=== PATIENT | female | born 1995 | race Two or more races ===

== ENCOUNTER → 2021-10-15 08:12 | Outpatient (CLI) | payer OTHER, SELFPAY ==
[2021-10-15 09:30] LABS: HCG,Quantitative 5026 mIU/ml (0-5.42)
== END ==
PROVIDERS: Visit Provider Obstetrics & Gynecology
DX: Z34.90 Encounter for supervision of normal pregnancy, unspecified, unspecified trimester (principal)
CPT/HCPCS: 36415; 84702

== ENCOUNTER 2021-10-15 13:46 | Emergency (ER) | payer OTHER, SELFPAY ==
[2021-10-15] VITALS (9 sets, daily range): BP systolic 110–130; BP diastolic 68–76; PULSE 65–85; RESP 16–18; TEMP 36.6–36.9; O2SAT 99–100; BMI 27.4; BMI 24.7
[2021-10-15 15:11] LABS: Apearance,Urine Clear (Clear); Blood, Urine Negative (Negative); Color,Urine Yellow (Yellow); Glucose,Urine (UA) Negative (Negative); Ketones,Urine Negative (Negative); Protein,Urine Negative (Negative); Specific Gravity, Urine > 1.030 (1.005-1.030)
[2021-10-15 15:12] LABS: Bilirubin,Urine Negative (Negative); UTC Leukocyte Esterase,Urine Trace (Negative); UTC Nitrate,Urine Negative (Negative); UTC Pregnancy Test, Urine Positive (Negative); Urobilinogen,Urine 0.2 EU/dl (0.2)
--- NOTE | 2021-10-15 15:26 | HMH.EDUTC ---
[facility] [place] Disposition Clinical Impression: Abdominal pain Qualifiers: Abdominal location: left lower quadrant Qualified Code(s): R10.32 - Left lower quadrant pain Qualifiers: Weeks of gestation: less than 8 weeks Qualified Code(s): Z3A.01 - Less than 8 weeks gestation of Disposition: Still a Patient Condition on Discharge: Fair Referrals: Provider,Referral, [Primary Care Provider] - Time of Disposition: 15:51 Medical Decision Making - Medical Records Medical records reviewed: No: I reviewed the patient's medical records. - Perry Inquiry Pt receiving controlled substance: No Vital Signs: 10/15/21 14:55 Temperature 97.9 F Temperature Source Oral Pulse Rate [Left] 65 Respiratory Rate 16 Blood Pressure [Right Arm] 130/74 Blood Pressure Mean [Right Arm] 92 02 Sat by Pulse Oximetry 100 - Lab Data Lab results reviewed: Yes: I reviewed the patient's lab results. Lab Results 10/15/21 15:02: Urine Color Yellow, Urine Appearance Clear, Urine pH 7.0, Ur Specific [place] > 1.030 H, Urine Protein Negative, Urine Glucose (UA) Negative, Urine Ketones Negative, Urine Blood Negative, Urine Nitrate Negative, Urine Bilirubin Negative, Urine Urobilinogen 0.2, Ur Leukocyte Esterase Trace, Tst Clinic Positive Orders (Tests/Meds): ORDERS Category Date Time Status Urine Culture Stat Micro 10/15/21 15:01 Received Medical Decision Narrative: She was sent to the ER due to being and having abdominal pain. [facility] [place] HPI - General Stated complaint: 7 wks , lft abd pain Time Seen by Provider: 10/15/21 15:27 Mode of Arrival: Ambulatory Source of Information: Patient Limitations: No Limitations Description of Symptoms (Recalled from Triage Doc. by RN): pt c/o LLQ pain. pt reports she is 7wks . pt c/o a milky white vaginal d/c, strong cramping pain and the pain worsens with movement. pt is gaurding. pt denies any vaginal bleeding at this time. pt has not been able to get in with an OB at this point. LMP 08/19/21 HEENT Symptoms (Recalled from RN notes): No Resp Symptoms (Recalled from RN notes): No Skin Symptoms (Recalled from RN notes): No MS Symptoms (Recalled from RN notes): No Functional Status (Recalled from RN notes): wnl - History of Present Illness Provider Complaint: She states that for the past 3 days she has had left lower quadrant abdominal pain. She is 7 weeks . She denies any vaginal bleeding. She denies any urinary complaints. - Related Data Allergies Allergy/AdvReac Type Severity Reaction Status Date / Time No Known Allergies Allergy Verified 10/15/21 15:01 - Worker's Comp Is this a Worker's Comp case?: No H History - Hepatitis A Screen Drug use history?: No High risk sexual behaviors?: No History of sexually transmitted infection?: No Currently employed?: No Childcare worker?: No Do you have indoor plumbing?: Yes Do you have electricity?: Yes Attestation statement:: This patient has been screened for Hepatitis A risk factors. I have reviewed the patient's past medical history: Yes ROS Obtained: Yes All systems reviewed & no additional complaints - Constitutional Constitutional: Denies chills, Denies fever(s) - Eyes Eyes: Denies eye discharge - ENT Ears, Nose, Mouth, and Throat: Denies dizziness, Denies otalgia, Denies sore throat - Cardiovascular Cardiovascular: Denies chest pain - Respiratory Respiratory: Denies chest congestion, Denies cough, Denies dyspnea, Denies stridor, Denies wheezing - Gastrointestinal Gastrointestingal: Denies: abdominal pain, diarrhea, nausea, vomiting - Genitourinary Female Genitourinary: Reports as per HPI - Musculoskeletal Musculoskeletal: Denies joint pain, Denies back pain, Denies neck pain - Integumentary/Breasts Skin/Breast: Denies rash Physical Exam - General General appearance: alert, in no apparent distress - Head Head exam: atraumatic, normocephali
--- NOTE | 2021-10-15 16:09 | PC.NURSE ---
Ultrasound has been called in
--- NOTE | 2021-10-15 16:10 | US_ITS ---
PROCEDURE INFORMATION: Exam: US , Transvaginal Exam date and time: 10/15/2021 5:02 PM Age: 26 years old Clinical indication: complicated by abdominal or pelvic pain; Right lower quadrant; First trimester (<14 weeks 0 days); Gestational age or lmp: 8 w 1 d; ; Additional info: Llq abdominal pain, R/O torsion, ectopic, or other TECHNIQUE: Imaging protocol: Real-time transvaginal obstetrical ultrasound of the maternal pelvis with image documentation. Transvaginal imaging was used for better evaluation of the fetus, adnexa, and/or cervix. COMPARISON: No relevant prior studies available. FINDINGS: Gestation: A single intrauterine gestational sac is identified. No pole or yolk sac is visualized. The mean gestational sac diameter is 0.7 cm. Placenta: A small area of hypoechogenicity is seen adjacent to the gestational sac, consistent with subchorionic hemorrhage. This measures 8.6 x 0.9 x 0.5 cm. BIOMETRY: Gestational age (AUA): The estimated gestational age by LMP is 8 weeks 1 day. MATERNAL: Uterus: The uterus measures 8.5 x 4.6 x 5.7 cm. The endometrium is thickened measuring 3.6 cm. Cervix: Small hypoechoic nabothian cysts are identified at the level of the cervix. Right ovary/adnexa: The right ovary measures 3.6 x 2.6 x 2.8 cm. Blood flow is demonstrated within the right ovary. Small hypoechoic nabothian cysts are seen within the right ovary. Within the right ovary, there is a 2.2 x 1.8 x 1.8 cm corpus luteum cyst, with peripheral hyperemia. Left ovary/adnexa: The left ovary measures 2.9 x 1.6 x 2.3 cm. Follicles are seen within the left ovary. Blood flow is demonstrated within the left ovary. IMPRESSION: 1. A single intrauterine gestational sac is identified. No pole or yolk sac is visualized. The findings are suspicious for but not diagnostic of failure, based on the [employer] Consensus Conference on Early First Trimester Diagnosis of Miscarriage and Exclusion of a Viable Intrauterine - March 2012. 2. The endometrium is thickened measuring 3.6 cm. 3. A small area of hypoechogenicity is seen adjacent to the gestational sac, consistent with subchorionic hemorrhage. 4. Within the right ovary, there is a 2.2 x 1.8 x 1.8 cm corpus luteum cyst. 5. Small hypoechoic nabothian cysts are identified at the level of the cervix. 6. Follow-up ultrasonography recommended.
--- NOTE | 2021-10-15 16:14 | HMH.EDGENADL ---
ED Disposition Clinical Impression: Threatened Subchorionic bleed Qualifiers: Fetus number: single or unspecified fetus Trimester: first trimester Qualified Code(s): O41.8X10 - Other specified disorders of amniotic fluid and membranes, first trimester, not applicable or unspecified; O46.8X1 - Other antepartum hemorrhage, first trimester Disposition: Home, Self-Care Condition on Discharge: Fair Instructions: DI for Acute Abdominal Pain Additional Instructions: Please follow-up with obstetrics for repeat labs and repeat ultrasound and please return to the emergency department with any new or worsening symptoms including fever, worsening abdominal pain, vaginal bleeding that will not stop or any other new or concerning symptoms. Referrals: Jam Reyes MD [Staff Physician] - ProviderChau MD [Primary Care Provider] - - Critical Care Critical Care Time: No Attestation: On 10/15/21, the high probability of a clinically significant, sudden or life threatening deterioration of the following system(s) required my full and direct attention, intervention and personal management. The time I documented below is in addition to time spent performing reported procedures but includes the following listed in this critical care notation. Medical Decision Making - Perry Inquiry Pt receiving controlled substance: No Vital Signs: 10/15/21 14:55 10/15/21 16:09 10/15/21 17:30 Temperature 97.9 F 98.4 F Temperature Source Oral Oral Pulse Rate 76 Pulse Rate [Left] 65 74 Respiratory Rate 16 16 16 Blood Pressure 112/76 Blood Pressure [Right Arm] 130/74 117/71 Blood Pressure Mean Blood Pressure Mean [Right Arm] 92 86 Blood Pressure Source [Right Arm] Automatic Cuff Blood Pressure Position [Right Arm] Sitting 02 Sat by Pulse Oximetry 100 100 100 Oxygen Delivery Method 10/15/21 18:00 10/15/21 18:30 10/15/21 19:00 Temperature Temperature Source Pulse Rate 67 85 66 Pulse Rate [Left] Respiratory Rate 16 18 17 Blood Pressure 117/71 110/68 120/72 Blood Pressure [Right Arm] Blood Pressure Mean 91 82 86 Blood Pressure Mean [Right Arm] Blood Pressure Source [Right Arm] Blood Pressure Position [Right Arm] 02 Sat by Pulse Oximetry 99 99 100 Oxygen Delivery Method 10/15/21 19:30 Temperature Temperature Source Pulse Rate 67 Pulse Rate [Left] Respiratory Rate Blood Pressure 116/71 Blood Pressure [Right Arm] Blood Pressure Mean Blood Pressure Mean [Right Arm] Blood Pressure Source [Right Arm] Blood Pressure Position [Right Arm] 02 Sat by Pulse Oximetry 100 Oxygen Delivery Method Room Air - Lab Data Lab Results 10/15/21 15:02: Urine Color Yellow, Urine Appearance Clear, Urine pH 7.0, Ur Specific [place] > 1.030 H, Urine Protein Negative, Urine Glucose (UA) Negative, Urine Ketones Negative, Urine Blood Negative, Urine Nitrate Negative, Urine Bilirubin Negative, Urine Urobilinogen 0.2, Ur Leukocyte Esterase Trace, Tst Clinic Positive 10/15/21 16:38: WBC 11.0 H, RBC 4.59, Hgb 13.8, Hct 43.0, MCV 93.6, MCH 30.1, MCHC 32.1, RDW 13.6, Plt Count 341, MPV 8.0, Neut % (Auto) 69.4, Lymph % (Auto) 23.1, Garza % (Auto) 4.3, Eos % (Auto) 0.6, Baso % (Auto) 2.5 H, Neut # (Auto) 7.6, Lymph # (Auto) 2.6, Garza # (Auto) 0.5, Eos # (Auto) 0.1, Baso # (Auto) 0.3 H 10/15/21 16:38: Sodium 137, Potassium 3.8, Chloride 103, Carbon Dioxide 23, Anion Gap 14.8, BUN 14, Creatinine 0.60, Estimated Creat Clear 144, Estimated GFR 122, Est GFR ( Amer) 147, Glucose 70 L, Calcium 8.7, HCG, Quant 6568 H 10/15/21 17:38: Blood Type O Positive, Antibody Screen Negative Result diagrams: 10/15/21 16:38 10/15/21 16:38 Orders (Tests/Meds): ORDERS Category Date Time Status Urine Culture Stat Micro 10/15/21 15:01 Received Medical Decision Narrative: 26-year-old female presented to the emergency department with history of several days of left lower quadrant abdominal pain
--- NOTE | 2021-10-15 17:26 | PC.NURSE ---
Pt returned from U/S
[2021-10-15 17:27] LABS: Basophils # 0.3 K/mm3 (0-0.2); Basophils % 2.5 % (0.1-2.0); Eosinophils # 0.1 K/mm3 (0.0-0.4); Eosinophils % 0.6 % (0.1-12.0); Hemoglobin 13.8 g/dL (12.2-16.2); Lymphocytes # 2.6 K/mm3 (0.7-4.5); Lymphocytes % 23.1 % (10-50); Mean Corpuscular HGB Conc 32.1 g/dL (31.8-35.4); Mean Corpuscular Hemoglobin 30.1 pg (27.0-31.2); Mean Corpuscular Volume 93.6 fl (81-99); Monocytes # 0.5 K/mm3 (0.1-1.0); Monocytes % 4.3 % (1.7-9.3); Neutrophils # 7.6 K/mm3 (1.8-7.8); Neutrophils % 69.4 % (37.0-80.0); Platelet Count 341 K/mm3 (142-424); Red Blood Count 4.59 M/mm3 (4.20-5.40); Red Cell Distribution Width 13.6 % (11.5-17.5)
[2021-10-15 17:30] LABS: Chloride 103 mmol/L (98-107); Potassium 3.8 mmoL/L (3.5-5.1); Sodium 137 mmol/L (136-145)
[2021-10-15 17:33] LABS: Anion Gap 14.8 mEq/L (5-15); Blood Urea Nitrogen 14 mg/dl (7-17); Calcium 8.7 mg/dl (8.4-10.2); Carbon Dioxide 23 mmol/L (22.0-30.0); Creatinine Clearance Estimated 144 mL/min (50-200); Estimated Glomerular Filt Rate 122 ml/min (>60); GFR (African American) 147 ML/MIN (>60); Glucose 70 mg/dl (74-100)
[2021-10-15 17:50] LABS: HCG,Quantitative 6568 mIU/ml (0-5.42)
== END 2021-10-15 20:39 | disposition home or self-care (01) ==
LOC: UTC 13:49 → ER 15:42
PROVIDERS: Nurse Practitioner Family; Emergency Provider Student in an Organized Health Care Education/Training Program
DX: O41.8X10 Other specified disorders of amniotic fluid and membranes, first trimester, not applicable or unspecified (principal); O46.8X1 Other antepartum hemorrhage, first trimester; Z3A.01 Less than 8 weeks gestation of pregnancy
CPT/HCPCS: 36415; 76817; 80048; 81003; 81025; 84702; 85025; 86850; 87086; 99284

== ENCOUNTER → 2021-10-18 10:57 | Outpatient (CLI) | payer OTHER, SELFPAY ==
[2021-10-18 18:54] LABS: HCG,Quantitative 15238 mIU/ml (0-5.42)
== END ==
PROVIDERS: Visit Provider Obstetrics & Gynecology
DX: Z34.90 Encounter for supervision of normal pregnancy, unspecified, unspecified trimester (principal)
CPT/HCPCS: 36415; 84702

== ENCOUNTER → 2021-10-25 10:21 | Outpatient (CLI) | payer OTHER, SELFPAY ==
--- NOTE | 2021-10-25 10:36 | US_ITS ---
FINAL REPORT CLINICAL HISTORY: Dates, Viability COMPARISON: 10/15/2021 FINDINGS: Sonographic images of the pelvis were obtained. A gestational sac is present in the uterus. [place]-rump length measures 0.82 cm corresponding to 6 week 6 day gestation. Heartbeat is identified at 126 beats per minute. Subchorionic hemorrhage seen on prior exam has resolved. There is a presumed corpus luteum cyst on the right measuring 2.3 cm. The right ovary measures 3.73 x 2.06 x 3.14 cm. The left ovary measures 3.33 x 1.92 x 2.60 cm. IMPRESSION: Single living intrauterine . Reviewed, Interpreted and Dictated by Bob Velazco III, MD Transcribed by Latha Daniels Authenticated by Bob Velazco III, MD on 10/25/2021 12:21:16 PM [facility]
== END ==
PROVIDERS: Visit Provider Obstetrics & Gynecology
DX: Z34.90 Encounter for supervision of normal pregnancy, unspecified, unspecified trimester (principal)
CPT/HCPCS: 36415; 76801; 84702

== ENCOUNTER → 2021-11-01 15:25 | Outpatient (CLI) | payer OTHER, SELFPAY ==
[2021-11-01 16:06] LABS: Basophils # 0.1 K/mm3 (0-0.2); Basophils % 1.1 % (0.1-2.0); Eosinophils # 0.1 K/mm3 (0.0-0.4); Eosinophils % 0.5 % (0.1-12.0); Hemoglobin 13.7 g/dL (12.2-16.2); Lymphocytes # 2.7 K/mm3 (0.7-4.5); Lymphocytes % 24.2 % (10-50); Mean Corpuscular HGB Conc 33.5 g/dL (31.8-35.4); Mean Corpuscular Hemoglobin 30.5 pg (27.0-31.2); Mean Platelet Volume 7.4 fl (7.4-10.4); Monocytes # 0.4 K/mm3 (0.1-1.0); Monocytes % 3.7 % (1.7-9.3); Neutrophils # 7.8 K/mm3 (1.8-7.8); Neutrophils % 70.5 % (37.0-80.0); Platelet Count 351 K/mm3 (142-424); Red Cell Distribution Width 13.4 % (11.5-17.5); White Blood Count 11.1 K/mm3 (4.8-10.8)
[2021-11-03 08:17] LABS: HIV Screen 4th Generation wRfx Non Reactive (Non Reactive); Hepatitis B Surface Antigen Negative (Negative); Hepatitis C Antibody <0.1 s/co ratio (0.0-0.9)
[2021-11-03 09:33] LABS: Rubella Antibodies, IgG <0.90 index (Immune >0.99)
[2021-11-03 12:17] LABS: Rapid Plasma Reagin Ab Titer Non Reactive (NonRea<1:1)
== END ==
PROVIDERS: Visit Provider Obstetrics & Gynecology
DX: Z34.90 Encounter for supervision of normal pregnancy, unspecified, unspecified trimester (principal)
CPT/HCPCS: 36415; 85025; 86592; 86703; 86762; 86850; 87340; 87380; G0432

== ENCOUNTER → 2021-11-01 16:55 | Outpatient (CLI) | payer OTHER, SELFPAY ==
[2021-11-01 15:40] LABS: Barbiturates Screen,Urine Negative ng/ml (<200)
[2021-11-01 15:41] LABS: Benzodiazepines Screen,Urine Negative ng/ml (<200)
[2021-11-01 15:42] LABS: Amphetamine/Metha Screen,Urine Negative ng/ml (<1000); Methadone Screen,Urine Negative ng/ml (<300)
[2021-11-01 15:43] LABS: Cannabinoid Screen,Urine Negative ng/ml (<50); Cocaine Screen,Urine Negative ng/ml (<300)
[2021-11-01 15:44] LABS: Opiate Screen,Urine Negative ng/ml (<300)
[2021-11-01 15:45] LABS: Phencyclidine Screen,Urine Negative ng/ml (<25)
== END ==
PROVIDERS: PCP Nurse Practitioner Family; Visit Provider Obstetrics & Gynecology
DX: Z34.90 Encounter for supervision of normal pregnancy, unspecified, unspecified trimester (principal)
CPT/HCPCS: 80305

== ENCOUNTER → 2022-01-24 12:58 | Outpatient (CLI) | payer OTHER, SELFPAY ==
--- NOTE | 2022-01-24 13:02 | US_ITS ---
FINAL REPORT CLINICAL HISTORY: 20 weeks gestation FINDINGS: There is a single live intrauterine gestation. Presentation is cephalic. The cervix is closed and measures 4.2. Placenta is anterior, High grade 1. movement is noted. Heart rate is detected at 146 beats per minute. Three-vessel cord with satisfactory umbilical cord insertion. Four-chamber heart is noted. ABDOMEN: Both kidneys are unremarkable. Stomach is unremarkable. SPINE: No anomalies identified. AMNIOTIC FLUID: Appropriate amount. MEASUREMENTS: ULTRASOUND AGE: 19 weeks 6 days. GESTATION AGE: 19 weeks 6 days. ESTIMATED WEIGHT: 319 g GROWTH PERCENTILE: 47 % BPD: 4.54 cm corresponding to 16 weeks 6 days. OFD: 5.80 cm corresponding to 20 weeks 0 days. HC: 16.36 cm corresponding to 20 weeks 1 day. AC: 14.80 cm corresponding to 20 weeks 1 day. FL: 3.17 cm corresponding to 19 weeks 6 days. HUMERUS: 3.06 cm corresponding to 20 weeks 1 day. HC/AC: 1.11 CI: 78% FL/BPD: 70% FL/AC: 21% IMPRESSION: Single living IUP with an ultrasound age of 19 weeks 6 days. Reviewed, Interpreted and Dictated by Bob Velazco III, MD Transcribed by Latha Daniels Authenticated and [facility]
== END ==
PROVIDERS: Visit Provider Obstetrics & Gynecology
DX: Z34.90 Encounter for supervision of normal pregnancy, unspecified, unspecified trimester (principal); Z3A.20 20 weeks gestation of pregnancy
CPT/HCPCS: 76811

== ENCOUNTER → 2022-03-28 08:52 | Outpatient (CLI) | payer OTHER, SELFPAY ==
[2022-03-28 09:06] LABS: MANUAL DIFFERENTIAL MANUAL DIFFERENTIAL (MANUAL DIFF)
[2022-03-28 09:20] LABS: Basophils # 0.1 K/mm3 (0-0.2); Basophils % 0.5 % (0.1-2.0); Eosinophils # 0.2 K/mm3 (0.0-0.4); Eosinophils % 1.9 % (0.1-12.0); Hematocrit 38.8 % (37.0-47.0); Hemoglobin 12.6 g/dL (12.2-16.2); Lymphocytes # 2.4 K/mm3 (0.7-4.5); Lymphocytes % 20.7 % (10-50); Mean Corpuscular HGB Conc 32.5 g/dL (31.8-35.4); Mean Corpuscular Hemoglobin 31.1 pg (27.0-31.2); Mean Corpuscular Volume 95.7 fl (81-99); Mean Platelet Volume 7.6 fl (7.4-10.4); Monocytes # 0.5 K/mm3 (0.1-1.0); Monocytes % 4.1 % (1.7-9.3); Neutrophils # 8.5 K/mm3 (1.8-7.8); Neutrophils % 72.8 % (37.0-80.0); Platelet Count 379 K/mm3 (142-424); Red Blood Count 4.05 M/mm3 (4.20-5.40); Red Cell Distribution Width 13.9 % (11.5-17.5); White Blood Count 11.7 K/mm3 (4.8-10.8)
[2022-03-28 09:46] LABS: Glucose,Fasting 90 mg/dl (74-100)
[2022-03-28 12:19] LABS: Glucose 1 Hour 143 mg/dL (74-100)
[2022-03-28 12:53] LABS: Lymphocytes % 19 % (10-50); Monocytes % 7 % (2-9); Neutrophils % 74 % (42-76); Platelet Estimate Normal; RBC Morphology Normal; Total Cells Counted 100
== END ==
PROVIDERS: PCP Obstetrics & Gynecology; Visit Provider Obstetrics & Gynecology
DX: Z34.90 Encounter for supervision of normal pregnancy, unspecified, unspecified trimester (principal); Z3A.23 23 weeks gestation of pregnancy
CPT/HCPCS: 36415; 82951; 85007; 85014; 85018; 85048; 85049

== ENCOUNTER → 2022-04-07 09:37 | Outpatient (CLI) | payer OTHER, SELFPAY ==
[2022-04-07 10:21] LABS: Glucose,Fasting 91 mg/dl (74-100)
[2022-04-07 11:25] LABS: Glucose 1 Hour 194 mg/dL (74-100)
[2022-04-07 13:27] LABS: Glucose 2 Hour 68 mg/dL (74-100); Glucose 3 Hour 75 mg/dL (74-100)
== END ==
PROVIDERS: Visit Provider Obstetrics & Gynecology
DX: R73.09 Other abnormal glucose (principal)
CPT/HCPCS: 36415; 82951

== ENCOUNTER → 2022-05-26 16:49 | Outpatient (CLI) | payer OTHER, SELFPAY | PROVIDERS: PCP Obstetrics & Gynecology; Visit Provider Obstetrics & Gynecology | DX: Z34.90 Encounter for supervision of normal pregnancy, unspecified, unspecified trimester (principal); Z3A.35 35 weeks gestation of pregnancy | CPT/HCPCS: 86403 ==

== ENCOUNTER 2022-06-13 04:57 | Inpatient (IN) | payer OTHER, SELFPAY ==
[2022-06-13 05:07] VITALS: BMI 31.1
[2022-06-13 05:43] VITALS: BP 121/72; PULSE 80; RESP 18; TEMP 36.9; O2SAT 96; BMI 31.1
[2022-06-13 05:52] LABS: Coronavirus 19, PCR Not Detected (NotDetected); Influenza A, PCR Not Detected (NotDetected); Influenza B, PCR Not Detected (NotDetected)
[2022-06-13 05:52] LABS: Microscopic, Urine URINE MICROSCOPIC (MICROSCOPIC)
[2022-06-13 06:06] LABS: Appearance,Urine CLEAR (Clear); Bilirubin,Urine Negative (Negative); Blood, Urine Negative (Negative); Color,Urine YELLOW (Yellow); Glucose,Urine (UA) Negative (Negative); Ketones,Urine Negative (Negative); Leukocyte Esterase,Urine 2+ (Negative); Nitrate,Urine Negative (Negative); PH,Urine 6.5 (5.0-8.5); Protein,Urine 1+ (Negative); Specific Gravity, Urine 1.015 (1.005-1.030); Urobilinogen,Urine 0.2 EU/dl (0.2)
[2022-06-13 06:16] LABS: Amphetamine/Metha Screen,Urine Negative ng/ml (<1000)
[2022-06-13 06:17] LABS: Barbiturates Screen,Urine Negative ng/ml (<200)
[2022-06-13 06:18] LABS: Benzodiazepines Screen,Urine Negative ng/ml (<200); Cannabinoid Screen,Urine Negative ng/ml (<50)
[2022-06-13 06:19] LABS: Cocaine Screen,Urine Negative ng/ml (<300)
[2022-06-13 06:20] LABS: Methadone Screen,Urine Negative ng/ml (<300); Opiate Screen,Urine Negative ng/ml (<300)
[2022-06-13 06:21] LABS: Phencyclidine Screen,Urine Negative ng/ml (<25)
[2022-06-13 06:35] LABS: Bacteria,Urine 1+ /lpf
[2022-06-13 08:00] VITALS: BP 119/68; PULSE 90; RESP 20; TEMP 37.1; O2SAT 100
[2022-06-13 08:19] LABS: Basophils % 0.2 % (0.1-2.0); Eosinophils # 0.1 K/mm3 (0.0-0.4); Eosinophils % 0.5 % (0.1-12.0); Hematocrit 37.9 % (37.0-47.0); Hemoglobin 12.7 g/dL (12.2-16.2); Lymphocytes # 3.1 K/mm3 (0.7-4.5); Mean Corpuscular HGB Conc 33.4 g/dL (31.8-35.4); Mean Corpuscular Hemoglobin 30.4 pg (27.0-31.2); Mean Corpuscular Volume 90.9 fl (81-99); Mean Platelet Volume 9.5 fl (7.4-10.4); Monocytes # 0.5 K/mm3 (0.1-1.0); Monocytes % 5.6 % (1.7-9.3); Neutrophils % 61.8 % (37.0-80.0); Platelet Count 312 K/mm3 (142-424); Red Blood Count 4.17 M/mm3 (4.20-5.40); White Blood Count 9.8 K/mm3 (4.8-10.8)
--- NOTE | 2022-06-13 09:55 | EXP.HP ---
History of Present Illness *Admission Date: 06/13/22 *Reason for visit:: Induction of Labor *History of present illness: 26 yo @ 39 11/29 admitted for induction of labor care at [facility]-- Dr. Garza Dating by 11/29 ultrasound complicated by language barrier She is Filipino-speaking only but care has been facilitated with personal fast food fry cook or use of translation mario on phone She has been very compliant with care She is also rubella non-immune, but was not able to understand questions about previous vaccines usually administered during childhood She failed 1 hr GTT (143) but passed 3 hr GTT OB Hx significant for 2 previous full term vaginal deliveries G1 was delivered in [place] and G2 was delivered in [facility] Disclaimer: The information contained in this section may have been updated after the patient was seen, as this information can be updated by other users. Social History Smoking Status: Never smoker alcohol intake: never substance use type: denies use current occupational status: unemployed Travel in the last 8 weeks: None Review of Systems Constitutional Constitutional: Reports system reviewed and no additional complaints, except as documented and Denies headache(s) ENT Ears, Nose, Mouth, and Throat: Denies headache(s) *Genitourinary Genitourinary: Denies abnormal vaginal bleeding *Neurologic Neurologic: Denies headache(s) and Denies other visual disturbances Meds Home Medications and Allergies Home Medications Medication Instructions Recorded Confirmed Type vits no.126-ferrous fum 1 tab PO DAILY PREGNACY 06/13/22 06/13/22 History 28 mg iron-folic acid 800 mcg tablet (Classic ) New Prescriptions to Start Prescriptions: Allergies Allergy/AdvReac Type Severity Reaction Status Date / Time No Known Allergies Allergy Verified 06/09/22 10:58 Exam Data for Last 24 hours Vital signs and Labs for Last 24 Hours: Temp Pulse Resp BP Pulse Ox 98.7 F 90 20 119/68 100 06/13/22 08:00 06/13/22 08:00 06/13/22 08:00 06/13/22 08:00 06/13/22 08:00 Laboratory Results - last 24 hr 06/13/22 05:15: Urine Color Yellow, Urine Appearance Clear, Urine pH 6.5, Ur Specific [place] 1.015, Urine Protein 1+, Urine Glucose (UA) Negative, Urine Ketones Negative, Urine Blood Negative, Urine Nitrate Negative, Urine Bilirubin Negative, Urine Urobilinogen 0.2, Ur Leukocyte Esterase 2+ A, Urine RBC None, Urine WBC 3-5, Ur Squamous Epith Cells 3-5, Urine Bacteria 1+ 06/13/22 05:15: Urine Opiates Screen Negative, Urine Methadone Screen Negative, Ur Barbituates Screen Negative, Ur Phencyclidine Scrn Negative, Ur Amphetamines Screen Negative, U Benzodiazepines Scrn Negative, Urine Cocaine Screen Negative, U Marijuana (THC) Screen Negative 06/13/22 05:40: WBC 9.8, RBC 4.17 L, Hgb 12.7, Hct 37.9, MCV 90.9, MCH 30.4, MCHC 33.4, RDW 14.0, Plt Count 312, MPV 9.5, Neut % (Auto) 61.8, Lymph % (Auto) 32.0, [place] % (Auto) 5.6, Eos % (Auto) 0.5, Baso % (Auto) 0.2, Neut # (Auto) 6.0, Lymph # (Auto) 3.1, [place] # (Auto) 0.5, Eos # (Auto) 0.1, Baso # (Auto) 0.0 06/13/22 05:40: SARS-CoV-2 (PCR) Not detected, Influenza A Untype (PCR) Not detected, Influenza Type B (PCR) Not detected 06/13/22 05:40: Blood Type O Positive, Antibody Screen Negative I & O for Last 24 hours: Intake & Output 06/10/22 06/11/22 06/12/22 06/13/22 11:59 11:59 11:59 11:59 Weight 193 lb Constitutional Constitutional: no acute distress *Routine HEENT Exam Head: Present normocephalic Eye: Absent conjunctival icterus or scleral injection ENT: Present mucous membranes moist *Routine Neck Exam Neck: Present supple *Routine Respiratory Exam Respiratory: Present CTA bilaterally; Absent respiratory distress *Routine Cardiovascular Exam Cardiovascular: Present RRR *Routine Abdominal Exam Abdominal: Present soft; Absent ten
--- NOTE | 2022-06-13 16:23 | EXP.DN ---
Delivery Note Delivery Date:: 06/13/22 Delivery Time:: 15:34 Anesthesia Type: None Was labor medically induced?: Yes Induction method: per pitocin protocol Gestational age (weeks): 39 Infant delivered prior to 39 weeks?: No Gender: Female at 1 minute: 9 at 5 minutes: 9 Delivery Procedure:: Spontaneous vaginal delivery of live born female over intact perineum, with single push Delivery uncomplicated Nuchal cord x 1 reduced on perineum No shoulder dystocia with delivery Infant placed in [facility] immediately after delivery, with standard nursing assessment performed Infant Apgars: 9 & 9 Placenta spontaneously expressed and examined; noted to be complete/intact. Vulva, vagina, and cervix inspected; no lacerations present EBL: 300 cc All sponge/needle/instrument counts correct at conclusion of procedure Placental Delivery Description: Spontaneous
[2022-06-14 09:33] LABS: Hematocrit 35.6 % (37.0-47.0); Hemoglobin 11.9 g/dL (12.2-16.2)
--- NOTE | 2022-06-14 10:37 | EXP.ACUTE.PN ---
Subjective *Date: 06/14/22 *Time: 10:37 Interval history: PPD # 1 s/p Feeling well. She is breast feeding. Denies pain. Appropriate lochia. No fever/chills, chest pain or shortness of breath. No swelling. Medical Exam Vital signs and Labs for Last 24 Hours: Laboratory Results - last 24 hr 06/14/22 09:07: Hgb 11.9 L, Hct 35.6 L I & O for Labs for Last 24 Hours: Intake & Output 06/11/22 06/12/22 06/13/22 06/14/22 23:59 23:59 23:59 23:59 Weight 193 lb Microbiology Reports for the Last 24 Hours: Microbiology 06/13/22 05:15 Urine,Clean Catch Urine Culture - Preliminary NO GROWTH AFTER 24 HOURS Head: Present atraumatic and normocephalic ENT: Present normal exam and mucous membranes moist Neck: Present normal inspection and full ROM Respiratory: Present CTA bilaterally and normal respiratory effort Cardiac: Present Reg Rate and Rhythm GI: Present soft; Absent tenderness or guarding Comments:: Uterine fundus firm and below umbilicus Rectal (female): Present deferred (female): Present deferred Extremities: Present normal inspection and full ROM; Absent edema or calf tenderness Neuro: Present alert, oriented x 3 and moves all extremities Assessment and Plan *Assessment and plan (1) 39 weeks gestation of : Status: Acute Category: Medical Code(s): Z3A.39 - 39 weeks gestation of (2) Language barrier affecting health care: Status: Acute Category: Social Hx Code(s): Z78.9 - Other specified health status (3) Acute blood loss anemia: Status: Acute Category: Medical Code(s): D62 - Acute posthemorrhagic anemia Plan Continue routine care Encouraged increased ambulation Plan d/c home tomorrow
[2022-06-14 21:30] VITALS: BP 121/69; PULSE 85; RESP 18; TEMP 36.7; O2SAT 97
[2022-06-15 04:00] VITALS: BP 116/70; PULSE 70; RESP 17; TEMP 37; O2SAT 99
--- NOTE | 2022-06-15 13:14 | EXP.DC.SUM ---
General Admission date:: 06/13/22 Discharge date: 06/15/22 HPI HPI HPI: 26 yo @ 39 11/29 admitted for induction of labor care at [facility]-- Dr. Garza Dating by 11/29 ultrasound complicated by language barrier She is Togolese-speaking only but care has been facilitated with personal medical translator or use of translation mario on phone She has been very compliant with care She is also rubella non-immune, but was not able to understand questions about previous vaccines usually administered during childhood She failed 1 hr GTT (143) but passed 3 hr GTT OB Hx significant for 2 previous full term vaginal deliveries G1 was delivered in [place] and G2 was delivered in [place] Hospital Course Hospital Course Hospital Course: course uncomplicated She is discharged home on PPD #2 in stable condition She is tolerating a regular diet, ambulating and voiding without difficulty Hgb 11.9 (12.7 at admission) She declined MMR administration for rubella non-immune status Exam Data for Last 24 hours Vital signs and Labs for Last 24 Hours: Temp Pulse Resp BP Pulse Ox 98.6 F 70 17 116/70 99 06/15/22 04:00 06/15/22 04:00 06/15/22 04:00 06/15/22 04:00 06/15/22 04:00 I & O for Last 24 hours: Intake & Output 06/13/22 06/14/22 06/15/22 06/16/22 11:59 11:59 11:59 11:59 Weight 193 lb Microbiology Reports for the Last 24 Hours: Microbiology 06/13/22 05:15 Urine,Clean Catch Urine Culture - Final NO GROWTH AFTER 48 HOURS Constitutional Constitutional: no acute distress *Routine HEENT Exam Head: Present normocephalic Eye: Absent conjunctival icterus or scleral injection ENT: Present mucous membranes moist *Routine Neck Exam Neck: Present supple *Routine Respiratory Exam Respiratory: Present CTA bilaterally *Routine Cardiovascular Exam Cardiovascular: Present RRR *Routine Abdominal Exam Abdominal: Present soft; Absent tenderness or distended *Routine Rectal Exam Patient deferred: visual exam and digital exam *Routine Exam Patient deferred: external exam Comments: Fundus firm below umbilicus *Routine Extremities Exam Extremities: Present edema *Routine Neurological Exam Neurological: Present alert and oriented X3 Routine Psychiatric Exam Psychiatric: Present normal affect; Absent depressed DS: Diagnosis Discharge Diagnosis (1) 39 weeks gestation of : Status: Acute (2) Language barrier affecting health care: Status: Acute (3) Rubella non-immune status, antepartum: Status: Acute (4) Normal spontaneous vaginal delivery: Status: Acute (5) Acute blood loss anemia: Status: Acute Meds Home Medications and Allergies Home Medications Medication Instructions Recorded Confirmed Type vits no.126-ferrous fum 1 tab PO DAILY PREGNACY 06/13/22 06/13/22 History 28 mg iron-folic acid 800 mcg tablet (Classic ) ibuprofen 400 mg tablet 800 mg PO Q6HP PRN Mild To 06/15/22 Rx Moderate Pain #30 tabs New Prescriptions to Start Prescriptions: ibuprofen Lucia Garza Allergies Allergy/AdvReac Type Severity Reaction Status Date / Time No Known Allergies Allergy Verified 06/09/22 10:58 Discharge Plan Disposition Patient Disposition: Home, Self-Care Discharge Order Discharge Orders: Discharge Order (Routine); Ordered 06/15/22 Ordered By: Lucia Garza Follow up Plan Follow up with: Lucia Garza MD [Staff Physician] - 06/27/22 9:45 am Prescriptions/Medication Reconciliation: New ibuprofen 400 mg Tablet 800 mg PO Q6HP PRN (Reason: Mild To Moderate Pain) Qty: 30 0RF Continued Classic 28 mg iron- 800 mcg tablet 1 tab PO DAILY Problem Reconciliation Problems Reviewed?: Yes Patient Discharge Instructions ACTIVITY: Continue current activity DIET: regular diet Additional Instructions: NO
== END 2022-06-15 12:40 | disposition home or self-care (01) | DRG 807 ==
PROVIDERS: Admitting Provider Obstetrics & Gynecology; Visit Provider Obstetrics & Gynecology
DX: O69.81X0 Labor and delivery complicated by cord around neck, without compression, not applicable or unspecified (principal); Z37.0 Single live birth; Z3A.39 39 weeks gestation of pregnancy
CPT/HCPCS: 59409; 36415; 59025; 80305; 81001; 85014; 85018; 85025; 86850; 87086; C9803; U0003; U0005